=== PATIENT | female | born 1985 | race Caucasian/White ===

== ENCOUNTER → 2018-04-30 | Outpatient (CLI) | payer OTHER | LOC: M.RAD 04-13 16:11 | DX: M25.552 Pain in left hip (principal) ==

== ENCOUNTER → 2018-10-12 | Outpatient (CLI) | payer OTHER | LOC: M.MRI 17:10 | DX: M51.27 Other intervertebral disc displacement, lumbosacral region (principal); G89.29 Other chronic pain ==

== ENCOUNTER 2020-02-20 12:15 | Emergency (ER) | payer OTHER ==
[~2020-02-20] VITALS: Ht 157.5 cm; Wt 130.2 kg
[2020-02-20] MEDS ORDERED: SERTRALINE HCL100 MG PO (12:27)
[2020-02-20] MEDS ORDERED: ROSUVASTATIN CA10 MG PO (12:28)
[2020-02-20] MEDS ORDERED: NORCO 10-325 T1 EACH PO (12:29)
[2020-02-20 12:50] LABS: ABSOLUTE BASOPHILS 0.1 thou/uL (0.0-0.2); ABSOLUTE EOSINOPHILS 0.3 thou/uL (0.0-0.7); ABSOLUTE LYMPHOCYTES 2.6 thou/uL (0.8-5.3); ABSOLUTE MONOCYTES 0.8 thou/uL (0.0-1.2); ABSOLUTE NEUTROPHILS 7.9 thou/uL (1.6-8.1); BASOPHILS 0.7 %; EOSINOPHILS 2.4 %; HEMATOCRIT 43.6 % (37.0-47.0); HEMOGLOBIN 14.3 gm/dL (12.0-15.0); LYMPHOCYTES 22.4 %; MCH 27.9 pg (26.0-34.0); MCHC 32.9 g/dL (28.0-37.0); MCV 84.9 fL (80.0-100.0); MONOCYTES 7.1 %; MPV 7.5 fl. (7.2-11.1); NUCLEATED RBCS 0 /100WBC; PLATELET COUNT* 300 thou/uL (150-400); POLYS 67.4 %; RBC 5.14 mil/uL (4.20-5.00); RDW-CV 13.1 % (10.5-14.5); WBC 11.8 thou/uL (4.0-11.0)
[2020-02-20 13:05] LABS: CALCIUM 8.7 mg/dL (8.5-10.1); CREATININE 0.8 mg/dL (0.6-1.3); MAGNESIUM 1.8 mg/dL (1.8-2.4); POTASSIUM 3.8 mmol/L (3.5-5.1); TOTAL BILIRUBIN 0.6 mg/dL (<0.1-1.0); TOTAL PROTEIN 7.6 g/dL (6.4-8.2)
--- NOTE | 2020-02-20 15:44 | EKG ---
[place] [address] ELECTROCARDIOGRAM REPORT Name: [place] TATE Room: [facility]#: [id number] Admission: 02/20/20 Attend Phys: Discharge: Date of : 89 Date of Service: 02/20/20 1221 Report #: [id number] THIS REPORT FOR: //name// [facility] ED Test Date: 2020-02-20 Test Time: 12:21:59 Pat Name: MONTANA TATE Department: Room: Gender: F Baker Bench: CCD : 1985 Requested By: Angelo Suggs Order Number: [id number] MD: Jacinto Merrill Measurements Intervals Lindsay Rate: 72 P: 51 HI: 160 QRS: 64 QRSD: 92 T: 24 QT: 374 QTc: 410 Interpretive Statements Sinus rhythm No previous ECG available for comparison Electronically Signed On 02-20-2020 15:44:29 CDT by Jacinto Merrill [email or web address] <ELECTRONICALLY SIGNED> By: Jacinto Merrill MD, [facility] 02/20/20 1544 1221 1221 Jacinto Merrill MD, FACC /EPI
[2020-02-20] MEDS ORDERED: ZOFRAN ODT4 MG DISSOLVE (15:45)
[2020-02-20] MEDS ORDERED: CARAFATE1 GM PO (15:45)
[2020-02-20 16:06] VITALS: BP 119/70
== END 2020-02-20 16:06 | disposition home or self-care (01) ==
LOC: M.ERS 12:15
PROVIDERS: Emergency Medicine Emergency Medical Services
DX: R07.89 Other chest pain (principal); Z90.49 Acquired absence of other specified parts of digestive tract; Z87.891 Personal history of nicotine dependence